=== PATIENT | male | born 1965 | race Caucasian/White ===

== ENCOUNTER 2019-07-15 09:25 | Day surgery (SDC) | payer BC ==
[~2019-07-15] VITALS: Ht 203.2 cm; Wt 86.8 kg
[~2019-07-15 09:25] MED LIST: CITA20 PO; CLON.5 PO; RAME8 PO
--- NOTE | 2019-07-15 10:22 | NUR ---
07/15/[address] NOTIFIED OF TEMP OF 100.0 & 99.5. NO ORDERS GIVEN.
--- NOTE | 2019-07-15 15:29 | NUR ---
07/15/19 1529 Lyric Colon LATE ENTRY [id number] PT. WITH SATS DOWN TO 86% ON 3L/NC, PT. WITH JAW THRUST & O2 UP TO 5L/NC. PT. SNORING. PT. WITH SATS BACK UP ON 5L/NC & THEN JAW THRUST NEEDED T.O. PROCEDURE.
== END 2019-07-15 13:17 | disposition home or self-care (01) ==
LOC: ORSCSDS 09:25
PROVIDERS: Internal Medicine Gastroenterology
PROC: 0DBK8ZX Excision of Ascending Colon, Via Natural or Artificial Opening Endoscopic, Diagnostic (ICD-10-PCS; principal; 2019-07-15 10:45)
PROC: 0DBA8ZX Excision of Jejunum, Via Natural or Artificial Opening Endoscopic, Diagnostic (ICD-10-PCS; principal; 2019-07-15 10:45)
PROC: 0DBL8ZX Excision of Transverse Colon, Via Natural or Artificial Opening Endoscopic, Diagnostic (ICD-10-PCS; principal; 2019-07-15 10:45)
DX: D50.9 Iron deficiency anemia, unspecified (principal); K29.80 Duodenitis without bleeding; K29.70 Gastritis, unspecified, without bleeding; R10.13 Epigastric pain; K21.9 Gastro-esophageal reflux disease without esophagitis; K63.5 Polyp of colon; K92.1 Melena; K64.8 Other hemorrhoids; E78.5 Hyperlipidemia, unspecified; G47.33 Obstructive sleep apnea (adult) (pediatric); Z87.891 Personal history of nicotine dependence; Z79.899 Other long term (current) drug therapy
CPT/HCPCS: 88305; 88342; J2704; J7040; J7120

== ENCOUNTER 2025-01-08 13:25 | Day surgery (SDC) | payer BC ==
[~2025-01-08] VITALS: Ht 172.7 cm; Wt 91.6 kg
[~2025-01-08 13:25] MED LIST changes: +Glycopyrrolate 0.2 MG/ML 1MLVIAL ONE; +Ondansetron HCl 2 MG / ML 2ML Vial ONE; +ePHEDrine Sulfate 50 MG/ML 1ML Injection ONE
[2025-01-08] MEDS ORDERED: AMLO5 (13:36)
[2025-01-08 15:41] VITALS: BP 123/74
== END 2025-01-08 15:53 | disposition home or self-care (01) ==
LOC: ORSCSDS 13:25
PROVIDERS: Internal Medicine Gastroenterology
PROC: 0DBP8ZX Excision of Rectum, Via Natural or Artificial Opening Endoscopic, Diagnostic (ICD-10-PCS; principal; 2025-01-08 15:00)
PROC: 0DBM8ZX Excision of Descending Colon, Via Natural or Artificial Opening Endoscopic, Diagnostic (ICD-10-PCS; principal; 2025-01-08 15:00)
PROC: 0DBL8ZX Excision of Transverse Colon, Via Natural or Artificial Opening Endoscopic, Diagnostic (ICD-10-PCS; principal; 2025-01-08 15:00)
DX: Z12.11 Encounter for screening for malignant neoplasm of colon (principal); K63.5 Polyp of colon; D12.8 Benign neoplasm of rectum; Z86.0101 Personal history of adenomatous and serrated colon polyps; Z86.0102 Personal history of hyperplastic colon polyps; Z80.0 Family history of malignant neoplasm of digestive organs; I10 Essential (primary) hypertension; G47.33 Obstructive sleep apnea (adult) (pediatric); Z68.32 Body mass index [BMI] 32.0-32.9, adult
CPT/HCPCS: 88305; J0461; J2405; J2704; J7120